=== PATIENT | male | born 2000 | race Two or more races ===

== ENCOUNTER 2023-01-23 23:58 | Emergency (ER) | payer OTHER ==
[~2023-01-23] VITALS: Ht 180.3 cm; Wt 83.8 kg
[2023-01-24] MEDS ORDERED: AUG875T PO (01:02)
[2023-01-24] MEDS ORDERED: HYDR-4902 PO (01:02)
[2023-01-24] MEDS ORDERED: OFL50TS OT (01:02)
[2023-01-24] MEDS ORDERED: HYDROcodone-ACET 5/325MG TAB PO ONE (01:15)
[2023-01-24 05:06] VITALS: BP 137/90; PULSE 64; RESP 16; TEMP 98; O2SAT 99
== END 2023-01-24 05:13 | disposition home or self-care (01) ==
LOC: ER 01-24
DX: H66.92 Otitis media, unspecified, left ear (principal)